=== PATIENT | male | born 1975 | race Caucasian/White ===

== ENCOUNTER 2017-02-08 16:10 | Inpatient (IN) | payer OTHER ==
[~2017-02-08] VITALS: Ht 182.9 cm; Wt 108.4 kg
[2017-02-08 17:31] VITALS: BP 158/114
--- NOTE | 2017-02-08 18:56 | NUR ---
Patient to bed 04.
--- NOTE | 2017-02-08 19:00 | NUR ---
41M BIB SELF C/O DIARRHEA W/ BLOOD IN STOOL X 3 DAYS; PT STATES HAD 6 EPISODES OF "BLOODY & WATERY" DIARRHEA W/ 1 EPISODE OF "BLACK" EMESIS X TODAY; PT C/O ACHING, RT SIDED ABDOMINAL PAIN, 6/10 X 3 DAYS; ABDOMEN SOFT, NON-TENDER, ACTIVE BOWEL SOUNDS X 4 QUADRANTS; PT A&OX4, PERRL, TACHYCARDIA NOTED ON THE MONITOR AT THIS TIME; BL LUNG SOUNDS CLEAR, RR EVEN/UNLABORED, SKIN IS WARM/DRY/INTACT AT THIS TIME; STEADY GAIT; PT RESTING IN BED W/ HOB ELEVATED AND IN LOWEST POSITION; POSITIONED FOR COMFORT; ER MD MADE AWARE OF STATUS. WILL CONTINUE TO MONITOR.
--- NOTE | 2017-02-08 19:12 | NUR ---
Pt report given to SINDHU SINGH. Transfer of care at this time.
--- NOTE | 2017-02-08 19:17 | NUR ---
CAME AT BEDSIDE TO EVALUATE PATIENT.
--- NOTE | 2017-02-08 19:25 | NUR ---
ASSUMED CARE. RECEIVED ALERT, NOT IN ACUTE DISTRESS. VERBALIZED RIGHT SIDED ABDOMINAL PAIN. DENIES NAUSEA AT THIS TIME. BP ELEVATED, OTHERWISE, STABLE. WILL CONTINUE TO MONITOR.
[2017-02-08] MEDS ORDERED: LORazepam 2 MG/ML VIAL IVP ONE (19:45)
[2017-02-08] MEDS ORDERED: ONDANSETRON 4 MG/2 ML VIAL IVP ONE (19:45)
--- NOTE | 2017-02-08 19:57 | NUR ---
US SLAB OFF MILL TENDER AT BEDSIDE TO DO ABDOMINAL ULTRASOUND.
--- NOTE | 2017-02-08 20:07 | NUR ---
GAUGE 20 IV LINE ESTABLISHED TO THE LEFT WRIST. ATIVAN 2 MG IVP AND ZOFRAN 4 MG IVP GIVEN ORDERED.
--- NOTE | 2017-02-08 20:56 | NUR ---
ADMITTED TO TELEMETRY UNIT FOR ULCER,ALCHOL WITHDRAWAL UNDER THE SERVICE OF DR. YOMI FELDER.
[2017-02-08] MEDS ORDERED: MORPHINE SULFATE 2 MG/ML SYR IVP PRN (21:00)
[2017-02-08] MEDS ORDERED: LORazepam 2 MG/ML VIAL IVP PRN ×3 (21:00→21:05)
[2017-02-08] MEDS ORDERED: HYDROcodone/APAP 5/325 MG 1 TAB TAB PO PRN (21:00)
[2017-02-08] MEDS ORDERED: hydrALAZINE 20 MG/ML VIAL IVP PRN (21:00)
[2017-02-08] MEDS ORDERED: ACETAMINOPHEN 325 MG TAB PO PRN (21:00)
[2017-02-08] MEDS ORDERED: ONDANSETRON 4 MG/2 ML VIAL IVP PRN (21:00)
[2017-02-08] MEDS ORDERED: LABETALOL 100 MG/20 ML VIAL IVP PRN (21:00)
--- NOTE | 2017-02-08 21:20 | NUR ---
REPORT GIVEN TO MADAN MANLEY. PT. GOING TO ROOM 107-A. VERBALIZED RELIEF OF ABDOMINAL PAIN. VS REMAIN STABLE.
--- NOTE | 2017-02-08 21:25 | NUR ---
TRANSFERRED TO FLOOR VIA ACLS PROTOCOL STABLE. TRANSFER UNEVENTFUL.
--- NOTE | 2017-02-08 21:30 | NUR ---
PT ARRIVED ON UNIT IN STABLE CONDITION. NO SOB, NO SIGNS OF DISTRESS. HR TACHY, OTHER VS WNL ON ROOM AIR. PT IS AOX4, AMBULATORY. PT DENIES PAIN/AGITATION/ANXIETY AT THIS TIME. SKIN IS INTACT. IV TO LT WRIST 20G PATENT, ASYMPTOMATIC, INTACT, SALINE LOCKED. ORIENTED PT TO ROOM AND UNIT. PLAN OF CARE DISCUSSED WITH PT. SAFETY MEASURES IN PLACE. CALL LIGHT WITHIN REACH. WILL CONTINUE TO MONITOR.
[2017-02-08 21:41] VITALS: BP 138/88
[2017-02-08] MEDS: NACL 0.9% 1,000 ML IV SCH (22:29)
[2017-02-09] VITALS: BP 134/84
--- NOTE | 2017-02-09 | NUR ---
VS STABLE ON ROOM AIR. NO SOB, NO SIGNS OF DISTRESS. IV SITE ASYMPTOMATIC, INTACT, PATENT, IVF RUNNING. PT DENIES PAIN AT THIS TIME. PLAN OF CARE DISCUSSED WITH PT. SAFETY MEASURES IN PLACE. CALL LIGHT WITHIN REACH. WILL CONTINUE TO MONITOR.
[2017-02-09] MEDS ORDERED: ZOLPIDEM 5 MG TAB PO PRN (00:05)
--- NOTE | 2017-02-09 02:15 | NUR ---
PT ASLEEP IN BED. NO SOB, NO SIGNS OF DISTRESS. IV SITE ASYMPTOMATIC, INTACT, PATENT, IVF RUNNING. SAFETY MEASURES IN PLACE. CALL LIGHT WITHIN REACH. WILL CONTINUE TO MONITOR.
--- NOTE | 2017-02-09 03:50 | NUR ---
VS STABLE ON ROOM AIR. NO SOB, NO SIGNS OF DISTRESS. IV SITE ASYMPTOMATIC, INTACT, PATENT, IVF RUNNING. PT DENIES PAIN OR ANXIETY AT THIS TIME. PLAN OF CARE DISCUSSED WITH PT. SAFETY MEASURES IN PLACE. CALL LIGHT WITHIN REACH. WILL CONTINUE TO MONITOR.
[2017-02-09 04:00] VITALS: BP 132/80
[2017-02-09] MEDS: LORazepam 1 MG TAB PO SCH ×3 (04:05→20:29)
[2017-02-09] MEDS: NACL 0.9% 1,000 ML IV SCH ×3 (04:05→17:35)
--- NOTE | 2017-02-09 06:25 | NUR ---
PT ASLEEP IN BED. UNABLE TO COLLECT URINE SAMPLE FOR UA SINCE PT DID NOT VOID THIS SHIFT, WILL ENDORSE TO AM NURSE. NO SOB, NO SIGNS OF DISTRESS. IV SITE ASYMPTOMATIC, INTACT, PATENT, IVF RUNNING. SAFETY MEASURES IN PLACE. CALL LIGHT WITHIN REACH. WILL CONTINUE TO MONITOR.
--- NOTE | 2017-02-09 07:26 | NUR ---
ENDORSED PT IN STABLE CONDITION TO SINDHU VALADEZ. COLLECTED URINE FROM PT. ALL NEEDS HAVE BEEN MET AT THIS TIME.
--- NOTE | 2017-02-09 07:48 | NUR ---
PATIENT HAS BEEN SCREENED AND CATEGORIZED HIGH NUTRITION RISK. PATIENT WILL BE SEEN WITHIN 1-2 DAYS OF ADMISSION. 02/09/17-02/10/[address]
--- NOTE | 2017-02-09 07:50 | NUR ---
RECEIVED REPORT FROM MADAN RN FOR CONTINUITY OF CARE. PATIENT AWAKE , A/OX4 NO S/S OF RESP DISTRESS NOTED. DENIES ANY PAIN. IV SITE LEFT WRIST GAUGE 20 INTACT AND PATENT. NO NAUSEA OR VOMITING AT THIS TIME. KEPT PT NPO ORDERED. PLAN OF CARE DISCUSSED WITH THE PATIENT VITALS STABLE WILL CONTINUE TO MONITOR.
[2017-02-09 08:00] VITALS: BP 133/84
[2017-02-09] MEDS ORDERED: PANTOPRAZOLE 40 MG INJ VIAL IVP SCH (09:00)
--- NOTE | 2017-02-09 09:00 | NUR ---
DUE MEDS GIVEN WITH SIP OF WATER, TOLERATED WELL , NO N/V OR PAIN AT THIS TIME , AMBULATE TO BATHROOM ,SELF MORNING CARE GIVEN.
[2017-02-09] MEDS: MULTIVITAMIN 1 TAB PO SCH (09:21)
[2017-02-09] MEDS: LISINOPRIL 10 MG TAB PO SCH (09:21)
[2017-02-09] MEDS: THIAMINE 100 MG TAB PO SCH (09:21)
[2017-02-09] MEDS: FOLIC ACID 1 MG TAB PO SCH (09:21)
[2017-02-09 11:59] VITALS: BP 119/88
--- NOTE | 2017-02-09 12:00 | NUR ---
RELAXED, DENIES ANY PAIN , VITALS STABLE AT THIS TIME.
--- NOTE | 2017-02-09 12:55 | NUR ---
SPOKE WITH DR Stevo DUMAS UPDATED PATIENT'S CONDITION NEW ORDER CONSENT FOR EGD.
[2017-02-09] MEDS ORDERED: fentaNYL 0.05 MG/ML VIAL ONE (13:13)
[2017-02-09] MEDS ORDERED: diphenhydrAMINE 50 MG/ML VIAL ONE (13:14)
[2017-02-09] MEDS ORDERED: MIDAZOLAM 2 MG/2 ML VIAL ONE (13:14)
--- NOTE | 2017-02-09 14:56 | NUR ---
PT LEFT FOR EGD, ACCOMPANY WITH GI NURSE REED, STABLE CONDITION.
[2017-02-09] MEDS ORDERED: MIDAZOLAM 2 MG/2 ML VIAL IVP ONE (15:15)
[2017-02-09] MEDS ORDERED: diphenhydrAMINE 50 MG/ML VIAL IVP ONE (15:15)
[2017-02-09] MEDS ORDERED: fentaNYL 0.05 MG/ML VIAL IVP ONE (15:15)
[2017-02-09 16:00] VITALS: BP 119/88
--- NOTE | 2017-02-09 16:00 | NUR ---
PATIENT BACK FROM GI AWAKE , DENIES ANY PAIN , VITALS STABLE , NEW ORDER CARRIED OUT.
[2017-02-09] MEDS ORDERED: MAGNESIUM OXIDE 400 MG TAB PO SCH (18:00)
--- NOTE | 2017-02-09 18:23 | NUR ---
DINNER SERVED GOOD APPETITE , SAFETY MAINTAINED ,CALL LIGHT IN REACH ,STABLE CONDITION.
--- NOTE | 2017-02-09 19:30 | NUR ---
RECEIVED REPORT FROM ALLYSON MANLEY AT BEDSIDE. PT IS ALERT AWAKE ORIENTED X4. INITIAL ASSESSMENT DONE. NO S/S OF RESPIRATORY DISTRESS OR SOB NOTED. NO C/O PAIN OR ANY DISCOMFORT AT THIS TIME. PLAN OF CARE REVIEWED TO PT AND VERBALIZED UNDERSTANDING. CALL LIGHT WITHIN REACH. WILL CONTINUE TO MONITOR.
[2017-02-09 20:00] VITALS: BP 115/70
[2017-02-10] VITALS: BP 112/82
--- NOTE | 2017-02-10 00:20 | NUR ---
PT. IS SLEEPING RIGHT NOW BUT EASILY AROUSABLE. NO S/S OF ANY DISCOMFORT AT THIS TIME. ALL NEEDS ARE ATTENDED. CALL LIGHT WITHIN REACH. WILL CONTINUE TO MONITOR.
[2017-02-10 04:00] VITALS: BP 118/78
[2017-02-10] MEDS: LORazepam 1 MG TAB PO SCH (05:17)
[2017-02-10] MEDS: NACL 0.9% 1,000 ML IV SCH (05:21)
--- NOTE | 2017-02-10 05:30 | NUR ---
AM CARE RENDERED. BED LINEN CHANGED. INSTRUCTED PT TO REPOSITION. KEPT CLEAN AND DRY. CALL LIGHT WITHIN REACH. WILL CONTINUE TO MONITOR.
--- NOTE | 2017-02-10 07:25 | NUR ---
PT HAS NO S/S OF ANY DISCOMFORT. PLAN OF CARE ENDORSED TO AM SHIFT NURSE FOR CONTINUITY OF CARE.
--- NOTE | 2017-02-10 07:26 | NUR ---
PT AWAKE ALERT AND ORIENTED X4, NO SIGNS OF ACUTE DISTRESS, BREATHING EVEN AND UNLABORED BILATERALLY, ABDOMEN SOFT AND FLAT WITH NO COMPLAINTS OF TENDERNESS OR PAIN, BOWEL AND BLADDER CONTINENCE, AMBULATORY, SKIN INTACT, IV PATENT NO REDNESS, BED IN LOW POSITION WITH BILATERAL HALF SIDE RAILS UP, CALL LIGHT WITHIN REACH.
[2017-02-10 08:00] VITALS: BP 132/88
[2017-02-10] MEDS ORDERED: MAGNESIUM OXIDE 400 MG TAB PO SCH ×2 (09:00→10:44)
[2017-02-10] MEDS ORDERED: PANTOPRAZOLE 40 MG INJ VIAL IVP SCH (09:00)
[2017-02-10] MEDS: FOLIC ACID 1 MG TAB PO SCH (09:09)
[2017-02-10] MEDS: THIAMINE 100 MG TAB PO SCH (09:10)
[2017-02-10] MEDS: MULTIVITAMIN 1 TAB PO SCH (09:10)
[2017-02-10] MEDS: LISINOPRIL 10 MG TAB PO SCH (09:10)
[2017-02-10] MEDS ORDERED: ATIVAN1 MG PO (10:08)
[2017-02-10] MEDS ORDERED: NATURE'S BLEND F1 MG PO (10:08)
[2017-02-10] MEDS ORDERED: THIAMINE HCL100 M1 PO (10:08)
--- NOTE | 2017-02-10 10:11 | NUR ---
PER DR ALVAREZ, DISREGARD NEW ORDER FOR MAG OXIDE, PT ALREADY GIVEN 800MG WILL CARRY OUT.
[2017-02-10] MEDS ORDERED: PROTONIX40 MG PO (10:14)
--- NOTE | 2017-02-10 10:37 | NUR ---
RECEIVED NEW ORDER FROM DR JUNITO HAND TO DISCHARGE, WILL CARRY OUT.
--- NOTE | 2017-02-10 10:55 | NUR ---
CM NOTE INITIAL REVIEW SENT TO [facility] FAX# [phone] PH# March [phone] Addendum: 02/10/17 at 1057 by Holli Crowell CM DOCUMENTED ON WRONG PATIENT
--- NOTE | 2017-02-10 11:55 | NUR ---
PT AWAKE AND ALERT, NO SIGNS OF ACUTE DISTRESS, MAY D/C HOME ORDERED. EDUCATED PT ON DISCHARGE INSTRUCTIONS, NEW PRESCRIPTIONS, FOLLOW UP WITHIN 3-[address] [facility], SIGNS AND SYMPTOMS OF INFECTION/EXACERBATION, PT AWARE AND VERBALIZED UNDERSTANDING. DENIES PAIN, D/C'D TELE MONITOR, IV AND WRIST BANDS. PT LEFT WITH ALL PERSONAL BELONGINGS BROUGHT TO THE UNIT, PICKED UP BY FAMILY VIA PRIVATE AUTO.
== END 2017-02-10 11:55 | disposition home or self-care (01) | DRG 243 ==
LOC: MED 16:10 → MTU 20:56
PROVIDERS: ADMIT Family Medicine; ATTEND Family Medicine
PROC: 0DB68ZX Excision of Stomach, Via Natural or Artificial Opening Endoscopic, Diagnostic (ICD-10-PCS; principal; 2017-02-09 14:30)
DX: K21.9 Gastro-esophageal reflux disease without esophagitis (principal); N17.0 Acute kidney failure with tubular necrosis; K29.20 Alcoholic gastritis without bleeding; E02 Subclinical iodine-deficiency hypothyroidism; F17.210 Nicotine dependence, cigarettes, uncomplicated; Y90.9 Presence of alcohol in blood, level not specified; F43.9 Reaction to severe stress, unspecified; F12.10 Cannabis abuse, uncomplicated; E83.42 Hypomagnesemia; F19.20 Other psychoactive substance dependence, uncomplicated; D72.829 Elevated white blood cell count, unspecified; F10.288 Alcohol dependence with other alcohol-induced disorder; Z80.42 Family history of malignant neoplasm of prostate